=== PATIENT | female | born 1950 | race Caucasian/White ===

== ENCOUNTER → 2021-09-15 | Outpatient (CLI) | payer MEDICARE, OTHER ==
[2021-09-15 16:34] LABS: HEMATOCRIT 44 % (35-52); HEMOGLOBIN 14.6 g/dL (11.5-16.0); MEAN CORPUSCULAR HEMOGLOBIN 32 pg (25-34); MEAN CORPUSCULAR HGB CONC 33 g/dL (32-36); MEAN CORPUSCULAR VOLUME 96 fL (80-99); MEAN PLATELET VOLUME 9.3 fL (9.0-12.2); PLATELET COUNT 278 10^3/uL (130-400); WHITE BLOOD COUNT 6.8 10^3/uL (4.3-11.0)
[2021-09-15 16:45] LABS: ALBUMIN 4.1 GM/DL (3.2-4.5)
[2021-09-15 16:46] LABS: POTASSIUM 3.5 MMOL/L (3.6-5.0)
[2021-09-15 16:47] LABS: CALCIUM 9.2 MG/DL (8.5-10.1)
[2021-09-15 16:48] LABS: TOTAL PROTEIN 7.3 GM/DL (6.4-8.2)
[2021-09-15 16:50] LABS: BILIRUBIN,TOTAL 0.4 MG/DL (0.1-1.0)
[2021-09-15 16:52] LABS: CREATININE SERUM 0.81 MG/DL (0.60-1.30)
--- NOTE | 2021-09-15 16:54 | Diagnostic Imaging Report ---
INDICATION: DECREASED COGNITION. TECHNIQUE: Two view chest 4:50 PM. CORRELATION STUDY: None FINDINGS: The heart size, mediastinal configuration and pulmonary vasculature are within normal limits. Electronic device over the left anterior lower chest. The lungs are clear with no consolidating infiltrate. There is no significant pleural effusion or pneumothorax. Rightward curvature of the thoracolumbar spine with degenerative change. IMPRESSION: 1. Negative for acute abnormality of the chest. Dictated by: Dictated on workstation # [id number]
== END ==
LOC: RAD 15:54
PROVIDERS: ATTEND Nurse Practitioner Family
DX: R41.841 Cognitive communication deficit (principal)
CPT/HCPCS: 36415; 71046; 80053; 85027; 87804

== ENCOUNTER 2021-09-17 14:29 | Emergency (ER) | payer MEDICARE, OTHER ==
[~2021-09-17] VITALS: Ht 160 cm; Wt 69.0 kg
[2021-09-17 14:29] VITALS: BP_DIAS 61
--- OUTSIDE RECORDS SUMMARY | 2021-09-17 14:33 | XMS REPORT | CCD ---
Author Author Myranda Henry Organization Melanie Mcneal MD, [facility] Address [address] [place] [address] Phone Care Team Providers Care Customer Development Representative Name Role Phone PP Unavailable CCM Unavailable Summary Purpose Interface Exchange Insurance Providers Payer name Policy type / Coverage type Covered green party ID Effective Begin Date Effective End Date WPS Medicare Part B Medicare Part B [id number] Unknown Unkno wn [facility] [employer]EFIT PLAN Medicare Part B [id number] Unknown Unknown Family history Sister Diagnosis Age At Onset Asthma Unknown Breast cancer Unknown Diabetes mellitus Type 2 Unknown Father Diagnosis Age At Onset Alcoholism Unknown Social History Social History Element Codes Description Effective Dates Marital status Unknown 08/29/2021 Number of children Unknown 0 08/29/2021 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/[address]: 401802605 Never smoker 08/29/2021 Alcohol history Unknown occasionally drinks alcohol 11/2021 Allergies, Adverse Reactions, Alerts Substance Reaction Codes Entered Date Inactivated Date Status * NO KNOWN DRUG ALLERGIES Unknown 08/29/2021 No Inactiv e Date Active Problems Condition Codes Effective Dates Condition Status Cerebral vascular accident ICD-10: I63.9 ICD-9: 434.91 08/29/2021 Active JOSE (generalized anxiety disorder) ICD-10: F41.1 ICD-9: 300.02 08/29/2021 Active Resting tremor ICD-10: G25.2 ICD-9: 781.0 08/29/2021 Active Slow transit constipation ICD-10: K59.01 ICD-9: 564.01 08/29/2021 Active Vascular dementia ICD-10: F01.50 ICD-9: 290.40 08/29/2021 Active Medications Medication Codes Instructions Start Date Stop Date Status Fill Instructions Remeron 15 mg tablet RxNorm: 558207 Take 1 Tablet(s) Oral every day 08/29/2021 No Stop Date Active valacyclovir 500 mg tablet RxNorm: 079307 Take 1 Tablet(s) Oral every day 08/29/2021 No Stop Date Active Milk of Magnesia oral RxNorm: 6581 oral 08/29/2021 Acti ve Medication Administered No Medication Administered data Immunizations No Immunization data Results No Results data Procedures No Procedures data Vital Signs Date Vital 08/29/2021 Blood Pressure 1: 115/68 Code: 8480-6 BMI: 25.0 Code: 64889-8 Heart Rate 1: 79 bpm Height: 5'3" Code: 8302-2 SpO2: 98% Temperature: 3 6.2 (C) / 97.2 (F) Weight: 141 lbs Code: 37642-7 Functional Status No Functional Status data Reason For Visit Reason For Visit Effective Dates Notes well woman exam (65+ years) 08/29/2021 Encounters Encounter Performer Location Codes Date () OFFICE VISIT, NEW - LEVEL 4 Diagnosis: Cerebral vascular accident[ICD10: I63.9] Diagnosis: Vascular dementia[ICD10: F01.50] Diagnosis: Resting tremor[ICD10: G25.2] Diagnosis: Slow transit constipation[ICD10: K59.01] Diagnosis: JOSE (generalized anxiety disorder)[ICD10: F41.1] [facility] CPT-4: 64101 08/29/2021 Plan of Care Planned Activity Notes Codes Status Date Visit Plan: CVA - pt and family not awar e of the underlying cause of stroke. Discussed importance of receiving records from [facility] and previous providers. Discussed normal CVA prevention of blood pressure control, statin use, and anticoagulant use. Nephew is pt POA now and unsure of the history as he has recently overtaken pt care. Pt in the process of moving from [facility] in [place] to [facility], plan for 09/14/2021. 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 Family denies recent decline or changes in memory. Over 8 months ago had significant behavioral issues and insomnia, was hospitalized and started on Remeron. Resolution of symptoms with Remeron. Resting Tremor - pt and nephew deny history of diagnosis of Parkinson's disease. Reports having resting tremor for some time. Discussed need to obtain previous records before proceeding with treatment. Herpes Simplex - no current flares with Acyclovir maintenance dose. Constipation - no current issue, but recently with issue resolved with MOM. Encouraged increased water and fiber intake. Preventative Care - pt memory poor, poor historian of medical care and unsure when last PAP, mammogram, labs, DXA, or colonoscopy was. Discussed obtaining previous records and will discuss at next visit. Alisa HAM - [phone] cell at [facility] 08/29/2021 Appointment: [facility] [phone] [id number] [facility] 08/29/2021 Patient Education: Patient Medication Summary Completed 08/29/2021 Care Plan: Lipid Pending 08/29/2021 Care Plan: %Hba1C LOINC : 92067-6 Pending 08/29/2021 Care Plan: Cbc With Differential Pending 08/29/2021 Care Plan: Comp Metabolic Pending Care Plan: B12 Pending 08/29/2021 Care Plan: Tsh Pending 08/29/2021 Instructions Comment Date SIGN RELEASE OF RECORDS TO PREVIOUS HOSP ITAL AND PHYSICIAN - DR DONELL GARCIA FASTING LABS ORDERS GIVEN TO PT TO HAVE DRAWN AT [facility] IN [place] . CVA - pt and family not aware of the u nderlying cause of stroke. Discussed importance of receiving records from [facility] and previous providers. Discussed normal CVA prevention of blood pressure control, statin use, and anticoagulant use. Nephew is pt POA now and unsure of the history as he has recently overtaken pt care. Pt in the process of moving from [facility] in [place] to [facility], plan for 09/14/2021. 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 Family denies recent decline or changes in memory. Over 8 months ago had significant behavioral issues and insomnia, was hospitalized and started on Remeron. Resolution of symptoms with Remeron. Resting Tremor - pt and nephew deny history of diagnosis of Parkinson's disease. Reports having resting tremor for some time. Discussed need to obtain previous records before proceeding with treatment. Herpes Simplex - no current flares with Acyclovir maintenance dose. Constipation - no current issue, but recently with issue resolved with MOM. Encouraged increased water and fiber intake. Preventative Care - pt memory poor, poor historian of medical care and unsure when last PAP, mammogram, labs, DXA, or colonoscopy was. Discussed obtaining previous records and will discuss at next visit. Alisa HAM - [phone] cell at [facility] 08/29/2021 Medical Equipment No Medical Equipment data Health Concerns Section Health Concerns data not found Goals Section Goals data not found Interventions Section Interventions data not found Health Status Evaluations/Outcomes Section Health Status Evaluations/Outcomes data not found Advance Directives No Advance Directive data
--- OUTSIDE RECORDS SUMMARY | 2021-09-17 14:33 | XMS REPORT | CCD ---
Author Author Myranda Henry Organization [facility] Address [address] [place] [address] Phone Care Team Providers Care Online Community Manager Name Role Phone PP Unavailable CCM Unavailable Summary Purpose Interface Exchange Insurance Providers Payer name Policy type / Coverage type Covered libertarian ID Effective Begin Date Effective End Date WPS Medicare Part B Medicare Part B [id number] Unknown Unkno wn [facility] [employer]IT [employer] Medicare Part B [id number] Unknown Unknown Family history Sister Diagnosis Age At Onset Asthma Unknown Breast cancer Unknown Diabetes mellitus Type 2 Unknown Father Diagnosis Age At Onset Alcoholism Unknown Social History Social History Element Codes Description Effective Dates Marital status Unknown 08/29/2021 Number of children Unknown 0 08/29/2021 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/[address]: [id number] Never smoker 08/29/2021 Alcohol history Unknown occasionally drinks alcohol 11/2021 Allergies, Adverse Reactions, Alerts Substance Reaction Codes Entered Date Inactivated Date Status * NO KNOWN DRUG ALLERGIES Unknown 08/29/2021 No Inactiv e Date Active Problems Condition Codes Effective Dates Condition Status Cerebral vascular accident ICD-10: I63.9 ICD-9: 434.91 08/29/2021 Active Cough ICD-10: R05.9 ICD-9: 786.2 09/15/2021 Active Resting tremor ICD-10: G25.2 ICD-9: 781.0 08/29/2021 Active Vascular dementia ICD-10: F01.50 ICD-9: 290.40 08/29/2021 Active Weakness generalized ICD-10: R53.1 ICD-9: 780.79 09/15/2021 Active JOSE (generalized anxiety disorder) ICD-10: F41.1 ICD-9: 300.02 08/29/2021 Active Slow transit constipation ICD-10: K59.01 ICD-9: 564.01 08/29/2021 Active Medications Medication Codes Instructions Start Date Stop Date Status Fill Instructions memantine 10 mg tablet RxNorm: 508038 Take 1 Tablet(s) Oral every night at bedtime 09/15/2021 No Stop Date Active Synthroid 75 mcg tablet RxNorm: 881230 Take 1 Tablet(s) Oral ev taylor morning 09/15/2021 No Stop Date Active Tamiflu 75 mg capsule RxNorm: 778676 Take 1 Capsule(s) Oral two times a day 09/15/2021 09/19/2021 Active benztropine 1 mg tablet RxNorm: 085451 Take 1 Tablet(s) Oral ev taylor day 09/15/2021 No Stop Date Active cefdinir 300 mg capsule RxNorm: 042161 Take 1 Capsule(s) Oral e very day 09/15/2021 09/21/2021 Active please deliver to [facility] haloperidol 0.5 mg tablet RxNorm: 814258 Take 1 Tablet(s) Oral two times a day 09/15/2021 02/11/2022 Active discontinue the 1mg tablets haloperidol 1 mg tablet RxNorm: 910464 Take 1 Tablet(s) Oral tw o times a day 09/15/2021 09/15/2021 Inactive Probiotic 100 billion cell capsule RxNorm: Take 1 Capsule(s) Oral two times a day 09/15/2021 11/13/2021 Active may substitute f or any probiotic cholecalciferol (vitamin D3) 25 mcg (1,000 unit) capsule RxN orm: 841001 Take 1 Capsule(s) Oral every day 09/15/2021 No Stop Date Active benztropine 0.5 mg tablet RxNorm: 530618 Take 1 Tablet( s) Oral every night at bedtime 09/15/2021 No Stop Date Active atorvastatin 20 mg tablet RxNorm: 745751 Take 1 Tablet(s) Oral every day 09/15/2021 No Stop Date Active latanoprost 0.005 % eye drops RxNorm: 717708 Instill 1 Drop(s) ophthalmic (eye) every night at bedtime 09/15/2021 No Stop Date Active melatonin 5 mg tablet RxNorm: 374858 Take 1 Tablet(s) O ral every night at bedtime 09/15/2021 No Stop Date Active Remeron 15 mg tablet RxNorm: 029327 Take 1 Tablet(s) Oral every day 08/29/2021 No Stop Date Active valacyclovir 500 mg tablet RxNorm: 496385 Take 1 Tablet(s) Oral every day 08/29/2021 No Stop Date Active Milk of Magnesia oral RxNorm: 6581 oral 08/29/2021 Acti ve Medication Administered No Medication Administered data Immunizations No Immunization data Results No Results data Procedures No Procedures data Vital Signs Date Vital 09/15/2021 Blood Pressure 1: 134/80 Code: 8480-6 BMI: 25.0 Code: 85368-6 Heart Rate 1: 80 bpm Height: 5'3" Code: 8302-2 SpO2: 96% Temperature: 3 6.0 (C) / 96.8 (F) Weight: 141 lbs Code: 64082-0 08/29/2021 Blood Pressure 1: 115/68 Code: 8480-6 BMI: 25.0 Code: 83482-4 Heart Rate 1: 79 bpm Height: 5'3" Code: 8302-2 SpO2: 98% Temperature: 3 6.2 (C) / 97.2 (F) Weight: 141 lbs Code: 47126-7 Functional Status No Functional Status data Reason For Visit Reason For Visit Effective Dates Notes diarrhea 09/15/2021 well woman exam (65+ years) 08/29/2021 Encounters Encounter Performer Location Codes Date () [address] EST. PATIENT, LEVEL IV Diagnosis: Cerebral vascular accident[ICD10: I63.9] Diagnosis: Vascular dementia[ICD10: F01.50] Diagnosis: Resting tremor[ICD10: G25.2] Diagnosis: Weakness generalized[ICD10: R53.1] Diagnosis: Cough[ICD10: R05.9] Elisha Mcneal MD, [facility] CPT-4: 99957 09/15/2021 (72555) OFFICE VISIT, NEW - LEVEL 4 Diagnosis: Cerebral vascular accident[ICD10: I63.9] Diagnosis: Vascular dementia[ICD10: F01.50] Diagnosis: Resting tremor[ICD10: G25.2] Diagnosis: Slow transit constipation[ICD10: K59.01] Diagnosis: JOSE (generalized anxiety disorder)[ICD10: F41.1] [facility] CPT-4: 74055 08/29/2021 Plan of Care Planned Activity Notes Codes Status Date Visit Plan: CVA/Vascular dementia - obtu nded during visit. Previously pt was not on haldol. Facility med list shows haldol 1mg BID. Family reports unaware of any behaviors or why pt was on the medication. Decrease haldol to 0.5mg BID to see if improves solemence. Family discussed concerns with further stroke. Education provided on ruling out other etiologies at this time since symptoms are not consistent with new onset CVA. Weakness/Cough - COVID negative. Afebrile. Unable to obtain UA while in office. Pt with increased weakness and unable to toilet self. Discussed with family that when she returns to [place] will n eed assistance until weakness resolves or pt can be moved to skilled care. Will send for CXR, labs and flu swab now. Since unable to obtain UA will also treat for possible UTI due to late in the afternoon on a Saturday. Cefdinir sent to pharmacy. Tremor unchanged. 09/15/2021 Patient Education: Patient Medication Summary Completed 09/15/2021 Patient Education: cefdinir- [employer] Coupon [id number] https://www.[employer]/samplemd/resources/getResource/61/827n0za3-d7k4-6tw0-ks Completed 09/15/2021 Patient Education: haloperidol- [employer] Coupon 1901 [id number] https://www.[employer]/samplemd/resources/getResource/61/6437j74x-2821-6182-pm Completed 09/15/2021 Patient Education: Tamiflu- [employer] Coupon [id number] 6 https://www.[employer]/samplemd/resources/getResource/61/u56j8621-i6x5-1t83-h2 Completed 09/15/2021 Visit Plan: CVA - pt and family not awar e of the underlying cause of stroke. Discussed importance of receiving records from [facility] and previous providers. Discussed normal CVA prevention of blood pressure control, statin use, and anticoagulant use. Nephew is pt POA now and unsure of the history as he has recently overtaken pt care. Pt in the process of moving from [facility] in [place] to [facility], plan for 09/14/2021. Will obtain fasting labs [...] discuss at next visit. Alisa HAM - [phone] cell at [facility] 08/29/2021 Appointment: Elisha Henry WPtel: [address] [place], [place] [id number] New Patient 08/29/2021 Patient Education: Patient Medication Summary Completed 08/29/2021 Care Plan: Lipid Pending 08/29/2021 Care Plan: %Hba1C LOINC : 72037-9 Pending 08/29/2021 Care Plan: Cbc With Differential Pending 08/29/2021 Care Plan: Comp Metabolic Pending Care Plan: B12 Pending 08/29/2021 Care Plan: Tsh Pending 08/29/2021 Instructions Comment Date STRAIGHT CATH FOR U&A AND CULTURE, LABS AT HOSPITAL PORTABLE CHEST XRAY PROBIOTIC DECREASE HALDOL TO 1/2 TABLET TWICE A DAY . CVA/Vascular dementia - obtunded durin g visit. Previously pt was not on haldol. Facility med list shows haldol 1mg BID. Family reports unaware of any behaviors or why pt was on the medication. Decrease haldol to 0.5mg BID to see if improves solemence. Family discussed concerns with further stroke. Education provided on ruling out other etiologies at this time since symptoms are not consistent with new onset CVA. Weakness/Cough - COVID negative. Afebrile. Unable to obtain UA while in office. Pt with increased weakness and unable to toilet self. Discussed with family that when she returns to [place] will need assistance until weakness resolves or pt can be moved to skilled care. Will send for CXR, labs and flu swab now. Since unable to obtain UA will also treat for possible UTI due to late in the afternoon on a Fr iday. Cefdinir sent to pharmacy. Tremor unchanged. 09/15/2021 SIGN RELEASE OF RECORDS TO PREVIOUS HOSP ITAL AND PHYSICIAN - RADHA, DR DONELL VIGIL FASTING LABS ORDERS GIVEN TO PT TO HAVE DRAWN AT [facility] IN [place] . CVA - pt and family not aware of the u nderlying cause of stroke. Discussed importance of receiving records from [facility] and previous providers. Discussed normal CVA prevention of blood pressure control, statin use, and anticoagulant use. Nephew is pt POA now and unsure of the history as he has recently overtaken pt care. Pt in the process of moving from [facility] in [place] to [facility], plan for 09/14/2021. Will obtain fasting labs [...] and will discuss at next visit. Alisa RN - [phone] cell at [facility] 08/29/2021 Medical Equipment No Medical Equipment data Health Concerns Section Health Concerns data not found Goals Section Goals data not found Interventions Section Interventions data not found Health Status Evaluations/Outcomes Section Health Status Evaluations/Outcomes data not found Advance Directives No Advance Directive data
--- OUTSIDE RECORDS SUMMARY | 2021-09-17 14:33 | XMS REPORT | CCD ---
Author Author Myranda Henry Organization Melanie Mcneal MD, [facility] Address [address] [place] [address] Phone Care Team Providers Care University Internship Name Role Phone PP Unavailable CCM Unavailable Summary Purpose Interface Exchange Insurance Providers Payer name Policy type / Coverage type Covered constitution party ID Effective Begin Date Effective End Date WPS Medicare Part B Medicare Part B [id number] Unknown Unkno wn [facility] [employer] BENEFIT PLAN Medicare Part B [id number] Unknown Unknown Family history Sister Diagnosis Age At Onset Asthma Unknown Breast cancer Unknown Diabetes mellitus Type 2 Unknown Father Diagnosis Age At Onset Alcoholism Unknown Social History Social History Element Codes Description Effective Dates Marital status Unknown 08/29/2021 Number of children Unknown 0 08/29/2021 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/[address]: 913925971 Never smoker 08/29/2021 Alcohol history Unknown occasionally [...] Fill Instructions Remeron 15 mg tablet RxNorm: 958156 Take 1 Tablet(s) Oral every day 08/29/2021 No Stop Date Active valacyclovir 500 mg tablet RxNorm: 493771 Take 1 Tablet(s) Oral every day 08/29/2021 No Stop Date Active Milk of Magnesia oral RxNorm: 6581 oral 08/29/2021 Acti ve Medication Administered No Medication Administered data Immunizations No Immunization data Results No Results data Procedures No Procedures data Vital Signs Date Vital 08/29/2021 Blood Pressure 1: 115/68 Code: 8480-6 BMI: 25.0 Code: 72742-2 Heart Rate 1: 79 bpm Height: 5'3" Code: 8302-2 SpO2: 98% Temperature: 3 6.2 (C) / 97.2 (F) Weight: 141 lbs Code: 24332-8 Functional Status No Functional Status data Reason For Visit Reason For Visit Effective Dates Notes well woman exam (65+ years) 08/29/2021 Encounters Encounter Performer Location Codes Date () OFFICE VISIT, NEW - LEVEL 4 Diagnosis: Cerebral vascular accident[ICD10: I63.9] Diagnosis: Vascular dementia[ICD10: F01.50] Diagnosis: Resting tremor[ICD10: G25.2] Diagnosis: Slow transit constipation[ICD10: K59.01] Diagnosis: JOSE (generalized anxiety disorder)[ICD10: F41.1] [facility] CPT-4: 20657 08/29/2021 Plan of Care Planned Activity Notes Codes Status Date Visit Plan: CVA - pt and family not awar e of the underlying cause of stroke. Discussed importance of receiving records from [facility] and previous providers. Discussed normal CVA prevention of blood pressure control, statin use, and anticoagulant use. Nephew is pt POA now and unsure of the history as he has recently overtaken pt care. Pt in the process of moving from [facility] in [place] to [facility], plan for 09/14/2021. Will obtain fasting [...] discuss at next visit. Alisa HAM - [phone] cell at [facility] 08/29/2021 Patient Education: Patient Medication Summary Completed 08/29/2021 Care Plan: Lipid Pending 08/29/2021 Care Plan: %Hba1C LOINC : 96533-1 Pending 08/29/2021 Care Plan: Cbc With Differential Pending 08/29/2021 Care Plan: Comp Metabolic Pending Care Plan: B12 Pending 08/29/2021 Care Plan: Tsh Pending 08/29/2021 Instructions Comment Date SIGN RELEASE OF RECORDS TO PREVIOUS HOSP ITAL AND PHYSICIAN - RADHA, DR DONELL VIGIL FASTING LABS ORDERS GIVEN TO PT TO HAVE DRAWN AT [facility] IN [place] . CVA - pt and family not aware of the u nderlying cause of stroke. Discussed importance of receiving records from [facility] and previous providers. Discussed normal CVA prevention of blood pressure control, statin use, and anticoagulant use. Nephew is pt POA now and unsure of the history as he has recently overtaken pt care. Pt in the process of moving from [facility] in [place] to [facility], plan for 09/14/2021. Will obtain fasting [...] discuss at next visit. Alisa HAM - [phone] cell at [facility] 08/29/2021 Medical Equipment No Medical Equipment data Health Concerns Section Health Concerns data not found Goals Section Goals data not found Interventions Section Interventions data not found Health Status Evaluations/Outcomes Section Health Status Evaluations/Outcomes data not found Advance Directives No Advance Directive data
--- OUTSIDE RECORDS SUMMARY | 2021-09-17 14:33 | XMS REPORT | CCD ---
Author Author Myranda Henry Organization Melanie Mcneal MD, [facility] Address [address] [place] [address] Phone Care Team Providers Care Insurance Healthcare Representative Name Role Phone PP Unavailable CCM Unavailable Summary Purpose Interface Exchange Insurance Providers Payer name Policy type / Coverage type Covered constitution party ID Effective Begin Date Effective End Date WPS Medicare Part B Medicare Part B [id number] Unknown Unkno wn [employer] Medicare Part B [id number] Unknown Unknown Family history Sister Diagnosis Age At Onset Asthma Unknown Breast cancer Unknown Diabetes mellitus Type 2 Unknown Father Diagnosis Age At Onset Alcoholism Unknown Social History Social History Element Codes Description Effective Dates Marital status Unknown 08/29/2021 Number of children Unknown 0 08/29/2021 Employment Unknown 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/[address]: 831406763 Never smoker 08/29/2021 Alcohol history Unknown occasionally drinks alcohol 11/2021 Allergies, Adverse Reactions, Alerts Substance Reaction Codes Entered Date Inactivated Date Status * NO KNOWN DRUG ALLERGIES Unknown 08/29/2021 No Inactiv e Date Active Problems Condition Codes Effective Dates Condition Status Cerebral vascular accident ICD-10: I63.9 ICD-9: 434.91 08/29/2021 Active Cough ICD-10: R05.9 ICD-9: 786.2 09/15/2021 Active Influenza A ICD-10: J10.1 ICD-9: 487.1 09/15/2021 Active Resting tremor ICD-10: G25.2 ICD-9: 781.0 08/29/2021 Active Vascular dementia ICD-10: F01.50 ICD-9: 290.40 08/29/2021 Active Weakness generalized ICD-10: R53.1 ICD-9: 780.79 09/15/2021 Active JOSE (generalized anxiety disorder) ICD-10: F41.1 ICD-9: 300.02 08/29/2021 Active Slow transit constipation ICD-10: K59.01 ICD-9: 564.01 08/29/2021 Active Medications Medication Codes Instructions Start Date Stop Date Status Fill Instructions memantine 10 mg tablet RxNorm: 356850 Take 1 Tablet(s) Oral every night at bedtime 09/15/2021 No Stop Date Active Synthroid 75 mcg tablet RxNorm: 263939 Take 1 Tablet(s) Oral ev taylor morning 09/15/2021 No Stop Date Active Tamiflu 75 mg capsule RxNorm: 837636 Take 1 Capsule(s) Oral two times a day 09/15/2021 09/19/2021 Active benztropine 1 mg tablet RxNorm: 895653 Take 1 Tablet(s) Oral ev taylor day 09/15/2021 No Stop Date Active cefdinir 300 mg capsule RxNorm: 370776 Take 1 Capsule(s) Oral e very day 09/15/2021 09/21/2021 Active please deliver to [facility] haloperidol 0.5 mg tablet RxNorm: 129611 Take 1 Tablet(s) Oral two times a day 09/15/2021 02/11/2022 Active discontinue the 1mg tablets haloperidol 1 mg tablet RxNorm: 717961 Take 1 Tablet(s) Oral tw o times a day 09/15/2021 09/15/2021 Inactive Probiotic 100 billion cell capsule RxNorm: Take 1 Capsule(s) Oral two times a day 09/15/2021 11/13/2021 Active may substitute f or any probiotic cholecalciferol (vitamin D3) 25 mcg (1,000 unit) capsule RxN orm: 849064 Take 1 Capsule(s) Oral every day 09/15/2021 No Stop Date Active benztropine 0.5 mg tablet RxNorm: 022019 Take 1 Tablet( s) Oral every night at bedtime 09/15/2021 No Stop Date Active atorvastatin 20 mg tablet RxNorm: 851365 Take 1 Tablet(s) Oral every day 09/15/2021 No Stop Date Active latanoprost 0.005 % eye drops RxNorm: 509112 Instill 1 Drop(s) ophthalmic (eye) every night at bedtime 09/15/2021 No Stop Date Active melatonin 5 mg tablet RxNorm: 156607 Take 1 Tablet(s) O ral every night at bedtime 09/15/2021 No Stop Date Active Remeron 15 mg tablet RxNorm: 966249 Take 1 Tablet(s) Oral every day 08/29/2021 No Stop Date Active valacyclovir 500 mg tablet RxNorm: 070272 Take 1 Tablet(s) Oral every day 08/29/2021 No Stop Date Active Milk of Magnesia oral RxNorm: 6581 oral 08/29/2021 Acti ve Medication Administered No Medication Administered data Immunizations No Immunization data Results No Results data Procedures No Procedures data Vital Signs Date Vital 09/15/2021 Blood Pressure 1: 134/80 Code: 8480-6 BMI: 25.0 Code: 75087-6 Heart Rate 1: 80 bpm Height: 5'3" Code: 8302-2 SpO2: 96% Temperature: 3 6.0 (C) / 96.8 (F) Weight: 141 lbs Code: 18209-3 08/29/2021 Blood Pressure 1: 115/68 Code: 8480-6 BMI: 25.0 Code: 93971-1 Heart Rate 1: 79 bpm Height: 5'3" Code: 8302-2 SpO2: 98% Temperature: 3 6.2 (C) / 97.2 (F) Weight: 141 lbs Code: 40603-3 Functional Status No Functional Status data Reason For Visit Reason For Visit Effective Dates Notes diarrhea 09/15/2021 well woman exam (65+ years) 08/29/2021 Encounters Encounter Performer Location Codes Date () EST. PATIENT, LEVEL IV Diagnosis: Cerebral vascular accident[ICD10: I63.9] Diagnosis: Vascular dementia[ICD10: F01.50] Diagnosis: Resting tremor[ICD10: G25.2] Diagnosis: Weakness generalized[ICD10: R53.1] Diagnosis: Cough[ICD10: R05.9] [facility] CPT-4: 78821 09/15/2021 ([id number]) OFFICE VISIT, NEW - LEVEL 4 Diagnosis: Cerebral vascular accident[ICD10: I63.9] Diagnosis: Vascular dementia[ICD10: F01.50] Diagnosis: Resting tremor[ICD10: G25.2] Diagnosis: Slow transit constipation[ICD10: K59.01] Diagnosis: JOSE (generalized anxiety disorder)[ICD10: F41.1] Elisha Mcneal MD, [facility] CPT-4: 88989 08/29/2021 Plan of Care Planned Activity Notes [...] with family that when she returns to [place] will n eed assistance until weakness resolves or pt can be moved to skilled care. Will send for CXR, labs and flu swab now. Since unable to obtain UA will also treat for possible UTI due to late in the afternoon on a Saturday. Cefdinir sent to pharmacy. Tremor unchanged. 09/15/2021 Patient Education: Patient Medication Summary Completed 09/15/2021 Patient Education: cefdinir- [employer] Coupon [id number] https://www.[employer]/samplemd/resources/getResource/61/332m5os2-z1c3-2jk5-de Completed 09/15/2021 Patient Education: haloperidol- [employer] Coupon [id number] https://www.[employer]/samplemd/resources/getResource/61/1874l68m-4176-0694-jr Completed 09/15/2021 Patient Education: Tamiflu- [employer] Coupon [id number] https://www.[employer]/samplemd/resources/getResource/61/y02h8266-x0f7-2z73-t1 Completed 09/15/2021 Patient Education: Patient Medication Summary Completed 09/15/2021 Visit Plan: CVA - pt and family not awar e of the underlying cause of stroke. Discussed importance of receiving records from [facility] home and previous providers. Discussed normal CVA prevention of blood pressure control, statin use, and anticoagulant use. Nephew is pt POA now and unsure of the history as he has recently overtaken pt care. Pt in the process of moving from [facility] in [place] to [facility], plan for 09/14/2021. Will obtain fasting [...] discuss at next visit. Alisa HAM - [phone] [facility] 08/29/2021 Appointment: Elisha Henry WPtel: [address] [place], [place] [id number] New Patient 08/29/2021 Patient Education: Patient Medication Summary Completed 08/29/2021 Care Plan: Lipid Pending 08/29/2021 Care Plan: %Hba1C LOINC : 16254-0 Pending 08/29/2021 Care Plan: Cbc With Differential [...] with family that when she returns to [place] will need assistance until weakness resolves or [...] PT TO HAVE DRAWN AT [facility] IN [place] . CVA - pt and family not aware of the u nderlying cause of stroke. Discussed importance of receiving records from [facility] and previous providers. Discussed normal CVA prevention of blood pressure control, statin use, and anticoagulant use. Nephew is pt POA now and unsure of the history as he has recently overtaken pt care. Pt in the process of moving from [facility] in [place] to [facility], plan for 09/14/2021. Will obtain fasting [...] discuss at next visit. Alisa HAM - [phone] [facility] 08/29/2021 Medical Equipment No Medical Equipment data Health Concerns Section Health Concerns data not found Goals Section Goals data not found Interventions Section Interventions data not found Health Status Evaluations/Outcomes Section Health Status Evaluations/Outcomes data not found Advance Directives No Advance Directive data
--- NOTE | 2021-09-17 14:54 | ED Fall/Injury ---
General Chief Complaint: Trauma-Non Activation Stated Complaint: FALL Nursing Triage Note: ARRIVED VIA EMS FROM [facility] AFTER FALLING AND HURTING HER RIGHT KNEE. DAUGHTER CONCERED WITH A STROKE. PT IS FLU A. Source: patient, [facility] records Exam Limitations: no limitations (PHILLIP STEINBERG APRN) History of Present Illness Date Seen by Provider: Sep 17, 2021 Time Seen by Provider: 14:52 Initial Comments To ER by EMS from [facility] with reports of right knee pain after she fell on 09/15/2021. Patient is a poor historian unable to contribute to history of present illness. She does have flu a positive. We are not sure why she fell 2 days ago. Occurred: this evening Severity: moderate Injuries/Pain Location: lower extremity Context: unknown Loss of Consciousness: unsure Associated Symptoms (Fall): Confusion (PHILLIP STEINBERG APRN) Allergies and Home Medications Allergies Coded Allergies: No Known Drug Allergies (Unverified , 09/17/21) Patient Home Medication List Home Medication List Reviewed: Yes (PHILLIP STEINBERG APRN) Review of Systems Review of Systems Constitutional: see HPI Eyes: No Symptoms Reported Ears, Nose, Mouth, Throat: no symptoms reported Respiratory: no symptoms reported Cardiovascular: no symptoms reported Genitourinary: no symptoms reported Musculoskeletal: see HPI Skin: no symptoms reported (PHILLIP STEINBERG APRN) Physical Exam Vital Signs Vital Signs - First Documented 09/17/21 14:29 Temp 36.1 Pulse 62 Resp 16 B/P (MAP) 108/61 (77) Pulse Ox 95 O2 Delivery Room Air (NICKIE WORLEY MD) Vital Signs Capillary Refill : Less Than 3 Seconds (PHILLIP STEINBERG APRN) Height, Weight, BMI Height: '" Weight: lbs. oz. kg; 26.00 BMI Method: General Appearance: WD/WN, no apparent distress, other (Somewhat lethargic, vitals are stable. Blood pressure 110 over 60s. Heart rate 58 sinus. Respiratory rate 18. She is alert but disoriented, she knows she is at the hospital but believes the year is 1981. Her right knee has a normal appearance nontender to palpation over the anterior medial and lateral aspect but tender to palpation over the posterior aspect and becomes painful with range of motion. There is no swelling or ecchymosis.) HEENT: PERRL/EOMI, normal ENT inspection Neck: non-tender, full range of motion Respiratory: no respiratory distress, no accessory muscle use Gastrointestinal: normal bowel sounds, non tender Extremities: non-tender, normal capillary refill Neurologic/Psychiatric: alert, normal mood/affect, oriented x 3 Skin: normal color, warm/dry (PHILLIP STEINBERG APRN) [place] Coma Score Best Eye Response: (4) Open Spontaneously Best Verbal Response: (4) Confused Conversation Best Motor Response: (6) Obeys Commands [place] Total: 15 (PHILLIP STEINBERG APRN) Progress/Results/Core Measures Results/Orders Lab Results Laboratory Tests Test 09/17/21 14:44 09/17/21 15:20 Range/Units White Blood Count 6.4 4.3-11.0 10^3/uL Red Blood Count 4.40 3.80-5.11 10^6/uL Hemoglobin 14.2 11.5-16.0 g/dL Hematocrit 43 35-52 % Mean Corpuscular Volume 97 80-99 fL Mean Corpuscular Hemoglobin 32 25-34 pg Mean Corpuscular Hemoglobin Concent 33 32-36 g/dL Red Cell Distribution Width 12.9 10.0-14.5 % Platelet Count 319 130-400 10^3/uL Mean Platelet Volume 9.2 9.0-12.2 fL Immature Granulocyte % (Auto) 1 % Neutrophils (%) (Auto) 50 42-75 % Lymphocytes (%) (Auto) 36 12-44 % Monocytes (%) (Auto) 10 0-12 % Eosinophils (%) (Auto) 3 0-10 % Basophils (%) (Auto) 0 0-10 % Neutrophils # (Auto) 3.2 1.8-7.8 X 10^3 Lymphocytes # (Auto) 2.3 1.0-4.0 X 10^3 Monocytes # (Auto) 0.6 0.0-1.0 X 10^3 Eosinophils # (Auto) 0.2 0.0-0.3 10^3/uL Basophils # (Auto) 0.0 0.0-0.1 10^3/uL Immature Granulocyte # (Auto) 0.1 0.0-0.1 10^3/uL Prothrombin Time 13.8 12.2-14.7 SEC INR Comment 1.0 0.8-1.4 Activated Partial Thromboplast Time 29 24-35 SEC Sodium Level 144 135-145 MMOL/L Potassium Level 3.5 L 3.6-5.0 MMOL/L Chloride Level 110 H 98-107 MMOL/L Carbon Dioxide Level 23 21-32 MMOL/L Anion Gap 11 5-14 MMOL/L Blood Urea Nitrogen 11 7-18 MG/DL Creatinine 0.74 0.60-1.30 MG/DL Estimat Glomerular Filtration Rate 86 BUN/Creatinine Ratio 15 Glucose Level 124 H 70-105 MG/DL Lactic Acid Level 0.84 0.50-2.00 MMOL/L Calcium Level 8.4 L 8.5-10.1 MG/DL Corrected Calcium 8.9 8.5-10.1 MG/DL Total Bilirubin 0.6 0.1-1.0 MG/DL Aspartate Amino Transf (AST/SGOT) 22 5-34 U/L Alanine Aminotransferase (ALT/SGPT) 19 0-55 U/L Alkaline Phosphatase 83 40-136 U/L Total Protein 6.2 L 6.4-8.2 GM/DL Albumin 3.4 3.2-4.5 GM/DL Urine Color YELLOW Urine Clarity CLEAR Urine pH 6.0 5-9 Urine Specific [place] 1.020 1.016-1.022 Urine Protein NEGATIVE NEGATIVE Urine Glucose (UA) NEGATIVE NEGATIVE Urine Ketones NEGATIVE NEGATIVE Urine Nitrite NEGATIVE NEGATIVE Urine Bilirubin NEGATIVE NEGATIVE Urine Urobilinogen 0.2 < = 1.0 MG/DL Urine Leukocyte Esterase NEGATIVE NEGATIVE Urine RBC (Auto) TRACE-I H NEGATIVE Urine RBC NONE /HPF Urine WBC 0-2 /HPF Urine Squamous Epithelial Cells 0-2 /HPF Urine Crystals NONE /LPF Urine Bacteria NEGATIVE /HPF Urine Casts NONE /LPF Urine Mucus NEGATIVE /LPF Urine Culture Indicated NO (NICKIE WORLEY MD) Medications Given in ED Current Medications Medications Dose Ordered Sig/Ken Route Start Time Stop Time Status Last Admin Dose Admin Ketorolac Tromethamine 15 mg ONCE ONCE IVP 09/17/21 15:00 09/17/21 15:01 DC 09/17/21 14:55 15 MG (NICKIE WORLEY MD) Vital Signs/I&O 09/17/21 09/17/21 14:29 16:18 Temp 36.1 Pulse 62 59 Resp 16 16 B/P (MAP) 108/61 (77) 61/ Pulse Ox 95 98 O2 Delivery Room Air Room Air (NICKIE WORLEY MD) Blood Pressure Mean: 77 Focused Exam Lactate Level 09/17/21 14:44: Lactic Acid Level 0.84 (NICKIE WORLEY MD) Lactic Acid Level Laboratory Tests Test 09/17/21 14:44 Lactic Acid Level 0.84 MMOL/L (0.50-2.00) (NICKIE WORLEY MD) Departure Communication (Admissions) NAME: TAMEKA WILKERSON [facility] REC#: [id number] PT STATUS: REG ER : 1950 PHYSICIAN: PHILLIP STEINBERG APRN ADMIT DATE: 09/17/21/ER Draft Date of Exam:09/17/21 CT HEAD WO PROCEDURE: CT head without contrast. TECHNIQUE: Multiple contiguous axial images were obtained through the brain without the use of intravenous contrast. Auto Exposure Controls were utilized during the CT exam to meet ALARA standards for radiation dose reduction. INDICATION: Fall. COMPARISON: Prior CT head from 06/26/2019. FINDINGS: The ventricles remain prominent. There is extensive periventricular low-attenuation consistent with chronic microvascular ischemia. Encephalomalacia in the right posterior parietal lobe is again noted. There is some encephalomalacia in the left temporal lobe. No sulcal effacement or midline shift is identified. No acute intra-axial or extra-axial hemorrhage is detected. Cisterns are patent. Visualized paranasal sinuses demonstrate mucosal thickening and opacification of multiple ethmoid air cells. There is mucosal thickening in bilateral maxillary sinuses as well as the frontal sinus. IMPRESSION: 1. Chronic changes stable since June 2019. No acute intracranial process detected. 2. Paranasal sinus mucosal disease. Dictated on workstation # [id number] Dict: 09/17/21 1540 Trans: 09/17/21 1544 [facility] [id number] Interpreted by: SUMMER WELLS MD Electronically signed by: NAME: TAMEKA WILKERSON [facility] REC#: [id number] PT STATUS: REG ER : 1950 PHYSICIAN: PHILLIP STEINBERG APRN ADMIT DATE: 09/17/21/ER Draft Date of Exam:09/17/21 KNEE, RIGHT, 3 VIEWS INDICATION: Fall with right knee pain. TIME OF EXAM: 3:41 PM. EXAMINATION: Three views of the right knee were obtained. There are mild tricompartmental degenerative changes. Articular surfaces are smooth. No fracture, dislocation or effusion is seen. IMPRESSION: Degenerative changes. No acute bony abnormality is detected. Dictated on workstation # [id number] Dict: 09/17/21 1544 Trans: 09/17/21 1546 [facility] [id number] Interpreted by: SUMMER WELLS MD Electronically signed by: NAME: TAMEKA WILKERSON [facility] REC#: [id number] PT STATUS: REG ER : 1950 PHYSICIAN: PHILLIP STEINBERG APRN ADMIT DATE: 09/17/21/ER Draft Date of Exam:09/17/21 CHEST 1 VIEW, AP/PA ONLY INDICATION: Fall. TIME OF EXAM: 3:40 PM. COMPARISON: Prior chest from 09/15/2021. Cardiac loop recorder overlies the mid left chest. Heart size is normal. Lungs are clear. No infiltrates are seen. There is no effusion or pneumothorax. IMPRESSION: No acute cardiopulmonary process is detected. Dictated on workstation # [id number] Dict: 09/17/21 1543 Trans: 09/17/21 1546 [facility] [id number] Interpreted by: SUMMER WELLS MD Electronically signed by: (PHILLIP STEINBERG APRN) Impression Primary Impression: Right knee pain Disposition: HOME, SELF-CARE Condition: Stable Departure-Patient Inst. Decision time for Depature: 15:52 (PHILLIP STEINBERG APRN) Patient Instructions: Knee Pain Add. Discharge Instructions: 1. Return to ER for any concerns. Follow-up with her doctor later this week for recheck. All discharge instructions reviewed with patient and/or family. Voiced understanding. ATTENDING PHYSICIAN NOTE: I was physically present as attending physician in the emergency department during the care of this patient, but I was not directly involved in the decision making or delivery of care for this patient. (NICKIE WORLEY MD) PHILLIP STEINBERG APRN Sep 17, 2021 14:54 NICKIE WORLEY MD Sep 17, 2021 19:11
[2021-09-17 14:55] LABS: BASOPHILS % (AUTO) 0 % (0-10); EOSINOPHILS # (AUTO) 0.2 10^3/uL (0.0-0.3); EOSINOPHILS % (AUTO) 3 % (0-10); HEMATOCRIT 43 % (35-52); HEMOGLOBIN 14.2 g/dL (11.5-16.0); LYMPHOCYTES # (AUTO) 2.3 X 10^3 (1.0-4.0); LYMPHOCYTES % (AUTO) 36 % (12-44); MEAN CORPUSCULAR HEMOGLOBIN 32 pg (25-34); MEAN CORPUSCULAR HGB CONC 33 g/dL (32-36); MEAN CORPUSCULAR VOLUME 97 fL (80-99); MEAN PLATELET VOLUME 9.2 fL (9.0-12.2); MONOCYTES # (AUTO) 0.6 X 10^3 (0.0-1.0); MONOCYTES % (AUTO) 10 % (0-12); NEUTROPHILS # (AUTO) 3.2 X 10^3 (1.8-7.8); NEUTROPHILS % (AUTO) 50 % (42-75); PLATELET COUNT 319 10^3/uL (130-400); WHITE BLOOD COUNT 6.4 10^3/uL (4.3-11.0)
[2021-09-17] MEDS ORDERED: LACTATED RINGERS 1,000 ML IV SCH (15:00)
[2021-09-17] MEDS ORDERED: KETOROLAC 30 MG/ML VIAL IVP ONE (15:00)
[2021-09-17 15:01] LABS: ALBUMIN 3.4 GM/DL (3.2-4.5); POTASSIUM 3.5 MMOL/L (3.6-5.0)
[2021-09-17 15:02] LABS: CALCIUM 8.4 MG/DL (8.5-10.1)
[2021-09-17 15:03] LABS: PROTHROMBIN TIME PATIENT 13.8 SEC (12.2-14.7); TOTAL PROTEIN 6.2 GM/DL (6.4-8.2)
[2021-09-17 15:05] LABS: BILIRUBIN,TOTAL 0.6 MG/DL (0.1-1.0)
[2021-09-17 15:07] LABS: CREATININE SERUM 0.74 MG/DL (0.60-1.30)
[2021-09-17 15:26] LABS: BILIRUBIN,URINE NEGATIVE (NEGATIVE); CLARITY,URINE CLEAR; COLOR,URINE YELLOW; GLUCOSE, URINE (UA) NEGATIVE (NEGATIVE); KETONES,URINE NEGATIVE (NEGATIVE); LEUKOCYTE ESTERASE ,URINE NEGATIVE (NEGATIVE); NITRITE,URINE NEGATIVE (NEGATIVE); PROTEIN,URINE NEGATIVE (NEGATIVE)
[2021-09-17 15:40] LABS: BACTERIA,URINE NEGATIVE /HPF; SQUAMOUS EPITHELIAL CELL,UR 0-2 /HPF; WBC,URINE 0-2 /HPF
--- NOTE | 2021-09-17 15:44 | Diagnostic Imaging Report ---
PROCEDURE: CT head without contrast. TECHNIQUE: Multiple contiguous axial images were obtained through the brain without the use of intravenous contrast. Auto Exposure Controls were utilized during the CT exam to meet ALARA standards for radiation dose reduction. INDICATION: Fall. COMPARISON: Prior CT head from 06/26/2019. FINDINGS: The ventricles remain prominent. There is extensive periventricular low-attenuation consistent with chronic microvascular ischemia. Encephalomalacia in the right posterior parietal lobe is again noted. There is some encephalomalacia in the left temporal lobe. No sulcal effacement or midline shift is identified. No acute intra-axial or extra-axial hemorrhage is detected. Cisterns are patent. Visualized paranasal sinuses demonstrate mucosal thickening and opacification of multiple ethmoid air cells. There is mucosal thickening in bilateral maxillary sinuses as well as the frontal sinus. IMPRESSION: 1. Chronic changes stable since June 2019. No acute intracranial process detected. 2. Paranasal sinus mucosal disease. Dictated by: Dictated on workstation # [id number]
--- NOTE | 2021-09-17 15:46 | Diagnostic Imaging Report ---
INDICATION: Fall. TIME OF EXAM: 3:40 PM. COMPARISON: Prior chest from 09/15/2021. Cardiac loop recorder overlies the mid left chest. Heart size is normal. Lungs are clear. No infiltrates are seen. There is no effusion or pneumothorax. IMPRESSION: No acute cardiopulmonary process is detected. Dictated by: Dictated on workstation # [id number]
--- NOTE | 2021-09-17 15:47 | Diagnostic Imaging Report ---
INDICATION: Fall with right knee pain. TIME OF EXAM: 3:41 PM. EXAMINATION: Three views of the right knee were obtained. There are mild tricompartmental degenerative changes. Articular surfaces are smooth. No fracture, dislocation or effusion is seen. IMPRESSION: Degenerative changes. No acute bony abnormality is detected. Dictated by: Dictated on workstation # [id number]
[2021-09-17 16:18] VITALS: BP_SYST 61
== END 2021-09-17 16:18 | disposition home or self-care (01) ==
LOC: EDUNIT# 14:29 → ER 14:30
DX: M25.561 Pain in right knee (principal)
CPT/HCPCS: 36415; 51701; 70450; 71045; 73562; 80053; 81000; 83605; 85025; 85610; 85730; 87040; 87088

== ENCOUNTER 2021-11-29 18:56 | Emergency (ER) | payer MEDICARE, OTHER ==
--- NOTE | 2021-11-29 19:11 | ED Fall/Injury ---
General Chief Complaint: Trauma-Non Activation Stated Complaint: FALL Nursing Triage Note: PT TO [facility] BY [facility] WITH C/O A WITNESSED FALL BY STAFF. STAFF SAID SHE FELL FROM STANDING ONTO HER L SIDE AND HIT HER HEAD ON THE L SIDE (THAI HUERTA) Source: patient, jail records, other (retirement staff) Exam Limitations: other (Dementia) (NICKIE WORLEY MD) History of Present Illness Date Seen by Provider: Nov 29, 2021 Time Seen by Provider: 19:02 Initial Comments Mrs. Wilkerson is a 71yo female with PMH dementia, schizophrenia, and anxiety who presents to ED via EMS due to fall. She had a witnessed fall onto her left side. She hit her head, no LOC. Pt states she remembers the fall but she is not oriented. She complains of some pain on the L side of her head. She also c omplains of some pain in her R hip. She is not a good historian due to her mental status. She does not have any other complaints. (THAI HUERTA) Initial Comments Patient has a contusion above her left eye. There are no other obvious injuries. Patient has had recent diarrhea and reportedly had 2 L of IVF administered yesterday. She is presently on cefdinir for unknown infection. (NICKIE WORLEY MD) Allergies and Home Medications Allergies Coded Allergies: No Known Drug Allergies (Unverified , 09/17/21) Patient Home Medication List Home Medication List Reviewed: Yes (NICKIE WORLEY MD) Review of Systems Review of Systems Constitutional: No chills, No fever Eyes: Denies Blindness, Denies Blurred Vision Ears, Nose, Mouth, Throat: denies mouth pain, denies loose teeth Respiratory: No cough, No short of breath Cardiovascular: No chest pain, No palpitations Gastrointestinal: No abdominal pain, No nausea, No vomiting Musculoskeletal: joint pain (R hip); No joint swelling Skin: No lesions, No rash (THAI HUERTA) Past Rhtavjk-Arodyf-Rlzdpq Hx Patient Social History Tobacco Use?: No Use of E-Cig and/or Vaping dev: No Substance use?: No Alcohol Use?: No Pt feels they are or have been: No (THAI HUERTA) Immunizations Up To Date Influenza Vaccine Up-to-Date: Yes; Up-to-Date (THAI HUERTA [employer] STUDENT) Past Medical History Surgery/Hospitalization HX: DEMENTIA, ANXIETY, WEAKNESS, DEPRESSION, TREMORS (THAI HUERTA [employer] DAWIT) Physical Exam Vital Signs Vital Signs - First Documented 11/29/21 19:08 Temp 36.6 Pulse 72 Resp 16 B/P (MAP) 131/82 (98) (NICKIE WORLEY MD) Vital Signs Capillary Refill : (THAI HUERTA [employer] STUDENT) Height, Weight, BMI Height: '" Weight: lbs. oz. kg; 26.00 BMI Method: (THAI HUERTA [employer] DAWIT) General Appearance: WD/WN, no apparent distress HEENT: PERRL/EOMI, other (No dental injury. Contusion above left eye) Neck: other (C-collar in place. No tenderness) Cardiovascular: regular rate, rhythm, no edema, no murmur Respiratory: lungs clear, normal breath sounds, no respiratory distress Gastrointestinal: non tender, soft; No distended Extremities: normal inspection, no pedal edema Neurologic/Psychiatric: alert, normal mood/affect, other (Generalized tremor) Skin: normal color, warm/dry, other (Contusion lateral of left brow) (NICKIE WORLEY MD) Celestino Coma Score Best Eye Response: (4) Open Spontaneously Best Verbal Response: (4) Confused Conversation Best Motor Response: (6) Obeys Commands [place] Total: 14 (NICKIE WORLEY MD) Progress/Results/Core Measures Results/Orders Lab Results Laboratory Tests Test 11/29/21 19:53 11/29/21 20:20 Range/Units Urine Color YELLOW Urine Clarity CLEAR Urine pH 6.0 5-9 Urine Specific [place] >=1.030 1.016-1.022 Urine Protein TRACE H NEGATIVE Urine Glucose (UA) NEGATIVE NEGATIVE Urine Ketones NEGATIVE NEGATIVE Urine Nitrite NEGATIVE NEGATIVE Urine Bilirubin NEGATIVE NEGATIVE Urine Urobilinogen 0.2 < = 1.0 MG/DL Urine Leukocyte Esterase NEGATIVE NEGATIVE Urine RBC (Auto) TRACE-I H NEGATIVE Urine RBC 0-2 /HPF Urine WBC RARE /HPF Urine Squamous Epithelial Cells RARE /HPF Urine Renal Epithelial Cells NONE /HPF Urine Crystals NONE /LPF Urine Bacteria TRACE /HPF Urine Casts NONE /LPF Urine Mucus NEGATIVE /LPF Urine Culture Indicated NO White Blood Count 7.7 4.3-11.0 10^3/uL Red Blood Count 3.99 3.80-5.11 10^6/uL Hemoglobin 12.7 11.5-16.0 g/dL Hematocrit 39 35-52 % Mean Corpuscular Volume 97 80-99 fL Mean Corpuscular Hemoglobin 32 25-34 pg Mean Corpuscular Hemoglobin Concent 33 32-36 g/dL Red Cell Distribution Width 14.1 10.0-14.5 % Platelet Count 250 130-400 10^3/uL Mean Platelet Volume 9.0 9.0-12.2 fL Immature Granulocyte % (Auto) 0 % Neutrophils (%) (Auto) 65 42-75 % Lymphocytes (%) (Auto) 18 12-44 % Monocytes (%) (Auto) 15 H 0-12 % Eosinophils (%) (Auto) 1 0-10 % Basophils (%) (Auto) 0 0-10 % Neutrophils # (Auto) 5.0 1.8-7.8 10^3/uL Lymphocytes # (Auto) 1.4 1.0-4.0 10^3/uL Monocytes # (Auto) 1.2 H 0.0-1.0 10^3/uL Eosinophils # (Auto) 0.1 0.0-0.3 10^3/uL Basophils # (Auto) 0.0 0.0-0.1 10^3/uL Immature Granulocyte # (Auto) 0.0 0.0-0.1 10^3/uL Sodium Level 139 135-145 MMOL/L Potassium Level 3.4 L 3.6-5.0 MMOL/L Chloride Level 109 H 98-107 MMOL/L Carbon Dioxide Level 17 L 21-32 MMOL/L Anion Gap 13 5-14 MMOL/L Blood Urea Nitrogen 12 7-18 MG/DL Creatinine 0.77 0.60-1.30 MG/DL Estimat Glomerular Filtration Rate 82 BUN/Creatinine Ratio 16 Glucose Level 107 H 70-105 MG/DL Calcium Level 8.4 L 8.5-10.1 MG/DL Corrected Calcium 8.8 8.5-10.1 MG/DL Magnesium Level 1.8 1.6-2.4 MG/DL Total Bilirubin 0.4 0.1-1.0 MG/DL Aspartate Amino Transf (AST/SGOT) 41 H 5-34 U/L Alanine Aminotransferase (ALT/SGPT) 54 0-55 U/L Alkaline Phosphatase 77 40-136 U/L Total Protein 6.0 L 6.4-8.2 GM/DL Albumin 3.5 3.2-4.5 GM/DL (NICKIE WORLEY MD) My Orders Orders - NICKIE WORLEY MD Ct Head/Cervical Spine Wo (11/29/21 19:09) Pelvis (11/29/21 19:09) Ua Culture If Indicated (11/29/21 19:09) Cbc With Automated Diff (11/29/21 19:15) Comprehensive Metabolic Panel (11/29/21 19:15) Magnesium (11/29/21 19:15) Ed Iv/Invasive Line Start (11/29/21 19:15) Monitor-Rhythm Ecg Trace Only (11/29/21 19:15) Orthostatic Vital Signs (Adult (11/29/21 19:15) (NICKIE WORLEY MD) Vital Signs/I&O 11/29/21 11/29/21 19:08 20:40 Temp 36.6 Pulse 72 79 82 94 Resp 16 B/P (MAP) 131/82 (98) 108/57 (74) 101/52 (68) 103/56 (72) (NICKIE WORELY MD) Progress Progress Note #1: Time: 20:38 Progress Note Orthostatic blood pressures were unremarkable. UA shows no evidence of pyuria. Imaging studies showed no injury. Labs are pending. Progress Note #2: Time: 20:49 Progress Note Patient is stable for discharge. There were no major concerns with the labs. See discharge instructions. (NICKIE WORLEY MD) Diagnostic Imaging Diagonstic Imaging: Xray Plain Films/CT/US/NM/MRI: pelvis Comments Pelvis x-ray viewed by me and report reviewed. See report below: NAME: TAMEKA WILKERSON [facility] REC#: [id number] PT STATUS: REG ER : 1950 PHYSICIAN: NICKIE WORLEY MD ADMIT DATE: 11/29/21/ER Signed Date of Exam:11/29/21 PELVIS INDICATION: Fall with pelvic pain. EXAMINATION: AP pelvis was obtained at 7:43 p.m. FINDINGS: No fracture or acute bony abnormality is seen. IMPRESSION: Negative pelvis. Dictated by: Dictated on workstation # [id number] Dict: 11/29/211951 Trans: 11/29/211956 [id number] Interpreted by: RYAN PIÑA MD Electronically signed by: RYAN PIÑA MD 11/29/211956 Diagonstic Imaging: CT Plain Films/CT/US/NM/MRI: c-spine, head Comments CT head and C-spine viewed by me and report reviewed. See report below: NAME: TAMEKA WILKERSON [facility] REC#: [id number] PT STATUS: REG ER : 1950 PHYSICIAN: NICKIE WORLEY MD ADMIT DATE: 11/29/21/ER Draft Date of Exam:11/29/21 CT HEAD/CERVICAL SPINE WO PROCEDURE: CT head and CT cervical spine without contrast. TECHNIQUE: Multiple contiguous axial images were obtained through the brain and cervical spine without the use of intravenous contrast. Sagittal and coronal reformations through the cervical spine were then performed. Auto Exposure Controls were utilized during the CT exam to meet ALARA standards for radiation dose reduction. INDICATION: Fall, head and neck injury. COMPARISON: 09/17/2021. FINDINGS: CT HEAD: The ventricles and cortical sulci are prominent, likely from generalized parenchymal volume loss and stable since the prior exam. There is encephalomalacia in the right occipital lobe. There are findings of chronic microvascular disease. There is no CT evidence of acute territorial ischemia. There is no midline shift or mass effect. No acute intracranial hemorrhage is seen. The calvarium appears intact. Visualized paranasal sinuses are clear. CT CERVICAL SPINE: There is trace retrolisthesis at C4-C5. There is mildly exaggerated lordosis of the cervical spine. There are moderate to severe degenerative changes at C4-C5 with mild degenerative changes elsewhere in the cervical spine. There is multilevel facet arthropathy. No acute fracture is seen. Bony fragments or hyperdense fluid collections are not seen in the spinal canal. Surrounding soft tissues demonstrate no acute abnormality. IMPRESSION: 1. No acute intracranial hemorrhage or calvarium fracture. Chronic intracranial findings appear stable since the prior exam. 2. Degenerative changes in the cervical spine with no acute fracture seen. Dictated on workstation # [id number] Dict: 11/29/211951 Trans: 11/29/211958 [facility] [id number] Interpreted by: MALCOLM ALMANZA MD (NICKIE WORLEY MD) Departure Impression Primary Impression: Fall on same level Qualified Codes: W18.30XA - Fall on same level, unspecified, initial encounter Additional Impressions: Forehead contusion Qualified Codes: S00.83XA - Contusion of other part of head, initial encounter Diarrhea Qualified Codes: R19.7 - Diarrhea, unspecified Disposition: 01 HOME, SELF-CARE Condition: Stable Departure-Patient Inst. Referrals: SANDEE JACOBSEN MD (PCP/Family) Primary Care Physician Patient Instructions: Contusion (DC) Add. Discharge Instructions: Encourage plenty of clear liquids to stay well-hydrated. Avoid milk products until diarrhea resolves. Please notify PCP of the event in the morning. Call PCP with questions or concerns. Rise and ambulate only with assist. Return to care if there are worsening symptoms. All discharge instructions reviewed with patient and/or family. Voiced understanding. Medical Student Attestation and Attending Note: I have personally interviewed and examined this patient along with Thai Huerta, MS 4. I have reviewed student documentation including history, physical, and assessments. I agree with the documentation except where otherwise noted. Exam: General: Alert, disoriented secondary to dementia, no acute distress, well developed HEENT: Normocephalic, contusion above the left eye Neck: C-collar in place, no tenderness Heart: Regular rate and rhythm without murmur Lungs: Clear to auscultation bilaterally with normal effort Extremities: No serious injuries identified. Range of motion in the lower extremities and hips appears intact. Abdomen: Soft, nontender, nondistended, normal bowel sounds Neuropsych: Alert, oriented, no focal deficits Skin: Warm and dry without rashes (NICKIE WORLEY MD) Copy Copies To 1: SANDEE JACOBSEN MD, DEREK MED STUDENT Nov 29, 2021 19:11 NICKIE WORLEY MD Nov 29, 2021 20:07
--- NOTE | 2021-11-29 19:57 | Diagnostic Imaging Report ---
INDICATION: Fall with pelvic pain. EXAMINATION: AP pelvis was obtained at 7:43 p.m. FINDINGS: No fracture or acute bony abnormality is seen. IMPRESSION: Negative pelvis. Dictated by: Dictated on workstation # [id number]
--- NOTE | 2021-11-29 20:00 | Diagnostic Imaging Report ---
PROCEDURE: CT head and CT cervical spine without contrast. TECHNIQUE: Multiple contiguous axial images were obtained through the brain and cervical spine without the use of intravenous contrast. Sagittal and coronal reformations through the cervical spine were then performed. Auto Exposure Controls were utilized during the CT exam to meet ALARA standards for radiation dose reduction. INDICATION: Fall, head and neck injury. COMPARISON: 09/17/2021. FINDINGS: CT HEAD: The ventricles and cortical sulci are prominent, likely from generalized parenchymal volume loss and stable since the prior exam. There is encephalomalacia in the right occipital lobe. There are findings of chronic microvascular disease. There is no CT evidence of acute territorial ischemia. There is no midline shift or mass effect. No acute intracranial hemorrhage is seen. The calvarium appears intact. Visualized paranasal sinuses are clear. CT CERVICAL SPINE: There is trace retrolisthesis at C4-C5. There is mildly exaggerated lordosis of the cervical spine. There are moderate to severe degenerative changes at C4-C5 with mild degenerative changes elsewhere in the cervical spine. There is multilevel facet arthropathy. No acute fracture is seen. Bony fragments or hyperdense fluid collections are not seen in the spinal canal. Surrounding soft tissues demonstrate no acute abnormality. IMPRESSION: 1. No acute intracranial hemorrhage or calvarium fracture. Chronic intracranial findings appear stable since the prior exam. 2. Degenerative changes in the cervical spine with no acute fracture seen. Dictated by: Dictated on workstation # [id number]
[2021-11-29 20:10] LABS: BILIRUBIN,URINE NEGATIVE (NEGATIVE); CLARITY,URINE CLEAR; COLOR,URINE YELLOW; GLUCOSE, URINE (UA) NEGATIVE (NEGATIVE); KETONES,URINE NEGATIVE (NEGATIVE); LEUKOCYTE ESTERASE ,URINE NEGATIVE (NEGATIVE); NITRITE,URINE NEGATIVE (NEGATIVE); PROTEIN,URINE TRACE (NEGATIVE)
[2021-11-29 20:18] LABS: BACTERIA,URINE TRACE /HPF; RBC,URINE 0-2 /HPF; SQUAMOUS EPITHELIAL CELL,UR RARE /HPF; WBC,URINE RARE /HPF
[2021-11-29 20:26] LABS: BASOPHILS % (AUTO) 0 % (0-10); EOSINOPHILS # (AUTO) 0.1 10^3/uL (0.0-0.3); EOSINOPHILS % (AUTO) 1 % (0-10); HEMATOCRIT 39 % (35-52); HEMOGLOBIN 12.7 g/dL (11.5-16.0); LYMPHOCYTES # (AUTO) 1.4 10^3/uL (1.0-4.0); LYMPHOCYTES % (AUTO) 18 % (12-44); MEAN CORPUSCULAR HEMOGLOBIN 32 pg (25-34); MEAN CORPUSCULAR HGB CONC 33 g/dL (32-36); MEAN CORPUSCULAR VOLUME 97 fL (80-99); MONOCYTES # (AUTO) 1.2 10^3/uL (0.0-1.0); MONOCYTES % (AUTO) 15 % (0-12); NEUTROPHILS % (AUTO) 65 % (42-75); PLATELET COUNT 250 10^3/uL (130-400); WHITE BLOOD COUNT 7.7 10^3/uL (4.3-11.0)
[2021-11-29 20:38] LABS: ALBUMIN 3.5 GM/DL (3.2-4.5); POTASSIUM 3.4 MMOL/L (3.6-5.0)
[2021-11-29 20:40] VITALS: BP_SYST 101; BP_SYST 103; BP_SYST 108; BP_DIAS 52; BP_DIAS 56; BP_DIAS 57
[2021-11-29 20:40] LABS: CALCIUM 8.4 MG/DL (8.5-10.1)
[2021-11-29 20:42] LABS: BILIRUBIN,TOTAL 0.4 MG/DL (0.1-1.0)
[2021-11-29 20:44] LABS: CREATININE SERUM 0.77 MG/DL (0.60-1.30)
[2021-11-29 20:47] LABS: MAGNESIUM 1.8 MG/DL (1.6-2.4)
[2021-11-29 21:30] VITALS: BP 134/63
== END 2021-11-29 21:35 | disposition home or self-care (01) ==
LOC: EDUNIT# 18:56 → ER 18:57
DX: S00.83XA Contusion of other part of head, initial encounter (principal); R19.7 Diarrhea, unspecified; W18.30XA Fall on same level, unspecified, initial encounter
CPT/HCPCS: 36415; 70450; 72125; 72170; 80053; 81000; 83735; 85025; 93041

== ENCOUNTER 2022-07-22 10:30 | Emergency (ER) | payer MEDICARE, OTHER ==
[~2022-07-22] VITALS: Ht 167.7 cm; Wt 59.0 kg
--- NOTE | 2022-07-22 10:57 | ED Fall/Injury ---
General Chief Complaint: Trauma-Non Activation Stated Complaint: FALL Source: alf records Exam Limitations: physical impairment (dementia) History of Present Illness Date Seen by Provider: Jul 22, 2022 Time Seen by Provider: 10:39 Initial Comments Patient is a 72-year-old female who presents to the emergency department from a local alf after a fall out of bed. Patient reportedly rolled out of bed and had a brief period of poor responsiveness. She does have a history of dementia. According to alf records she has a history of tremors. assisted reported that she was shaking more than normal. She is alert to self. She is able to answer yes and no questions. She does not follow commands consistently. She will squeeze my hand when asked, she will move her feet and arms but she will not track light with the otoscope. She reports pain to her nasal bridge. Vital signs are stable at presentation. She has a small 1 cm curvilinear laceration over the bridge of the nose that is tender to the touch. Small contusion to the forehead just above the nasal bridge to the right. Moves all extremities equally. Hand overhand palpation over the entirety reveals no point tenderness. Patient is not on blood thinners. Location Injury Occurred: alf Occurred: just prior to arrival Severity: mild Injuries/Pain Location: face Context: lost balance Loss of Consciousness: unsure Allergies and Home Medications Allergies Coded Allergies: No Known Drug Allergies (Unverified , 09/17/21) Patient Home Medication List Home Medication List Reviewed: Yes Review of Systems Review of Systems Constitutional: see HPI ROS limited secondary to patient's dementia Past Mtnqngr-Amfggk-Btigom Hx Patient Social History Tobacco Use?: No Use of E-Cig and/or Vaping dev: No Substance use?: No Alcohol Use?: No Immunizations Up To Date First/Initial COVID19 Vaccinat: UNK Second COVID19 Vaccination Victor M: UNK Third COVID19 Vaccination Date: UNK COVID19 Vaccine Proof Inspector: UNK Past Medical History Surgery/Hospitalization HX: DEMENTIA, ANXIETY, WEAKNESS, DEPRESSION, TREMORS, HYPOTHYROIDISM, COMMUNICATION DEFICIT, HYPERLIPIDEMIA, SCHIZOPHRENIA, TIA Physical Exam Vital Signs Vital Signs - First Documented 07/22/22 10:30 Temp 35.6 Pulse 66 Resp 20 B/P (MAP) 111/95 (100) Pulse Ox 99 O2 Delivery Room Air Capillary Refill : Height, Weight, BMI Height: '" Weight: lbs. oz. kg; 26.00 BMI Method: General Appearance: WD/WN, no apparent distress HEENT: TMs normal, other (small curvilinear laceration over the nasal bridge; oozing a little blood; surrounding ecchymoses) Neck: non-tender, normal inspection; No tender lateral, No tender midline Cardiovascular: regular rate, rhythm Respiratory: lungs clear, normal breath sounds, no respiratory distress, no accessory muscle use Gastrointestinal: non tender, soft Extremities: normal range of motion, normal inspection, no calf tenderness Neurologic/Psychiatric: alert, depressed affect, disoriented x 3 Skin: normal color, warm/dry, other (as above with small contusion to forehead to the right of midline above the nasal bridge) Celestino Coma Score Best Eye Response: (4) Open Spontaneously Best Verbal Response: (4) Confused Conversation Best Motor Response: (6) Obeys Commands [place] Total: 14 Progress/Results/Core Measures Results/Orders My Orders Orders - WALESKA PETERSON MD Acetaminophen Tablet (Tylenol Tablet) (07/22/22 11:15) Medications Given in ED Current Medications Medications Dose Ordered Sig/Ken Route Start Time Stop Time Status Last Admin Dose Admin Acetaminophen 1,000 mg ONCE ONCE PO 07/22/22 11:15 07/22/22 11:16 DC 07/22/22 11:18 1,000 MG Vital Signs/I&O 07/22/22 10:30 Temp 35.6 Pulse 66 Resp 20 B/P (MAP) 111/95 (100) Pulse Ox 99 O2 Delivery Room Air Progress Progress Note : Time: 11:27 Departure Impression Primary Impression: Facial contusion Qualified Codes: S00.83XA - Contusion of other part of head, initial encounter Additional Impression: Nasal laceration Qualified Codes: S01.21XA - Laceration without foreign body of nose, initial encounter Disposition: 01 HOME, SELF-CARE Condition: Stable Departure-Patient Inst. Decision time for Depature: 11:26 Referrals: SANDEE JACOBSEN MD (PCP/Family) Primary Care Physician Patient Instructions: Skin Glue for Minor Cuts, Minor Head Injury Add. Discharge Instructions: Keep the abrasions on her face clean dry and covered. The laceration on the nasal bridge was closed with skin glue. Do not put triple antibiotic ointment over the glue as it will take it off. If she has any worsening mental status changes, vomiting, passing out spell or any other emergent, concerning symptoms please bring her back to the emergency room for reevaluation. Images Head/Face 1 - Mild, Laceration 2 - Mild, Abrasion Copy Copies To 1: SANDEE JACOBSEN MD, KATHRYN M MD Jul 22, 2022 10:57
[2022-07-22] MEDS ORDERED: ACETAMINOPHEN 500 MG TAB (TYLENOL) PO ONE (11:15)
[2022-07-22 12:35] VITALS: BP 99/60
== END 2022-07-22 12:35 | disposition home or self-care (01) ==
LOC: EDUNIT# 10:30 → ER 10:31
DX: S01.21XA Laceration without foreign body of nose, initial encounter (principal); W06.XXXA Fall from bed, initial encounter; Y92.122 Bedroom in nursing home as the place of occurrence of the external cause
CPT/HCPCS: 99283